=== PATIENT | female | born 1980 | race Caucasian/White ===

== ENCOUNTER 2018-03-15 20:33 | Emergency (ER) | payer BC ==
[2018-03-15 20:50] VITALS: RESP 20
[2018-03-15] MEDS ORDERED: SODIUM CHLORIDE 0.9% 1,000 ML IV STA (20:58)
--- NOTE | 2018-03-15 21:11 | ED ---
Abdominal Pain HPI - General Chief Complaint: Abdominal Pain Stated Complaint: abd pain Time Seen by Provider: 03/15/18 20:44 Source: patient, RN notes reviewed Mode of arrival: ambulatory Limitations: no limitations - History of Present Illness Initial Comments: 38-year-old female presented from chief complaint of abdominal pain. Patient states started over the last day or so, primarily right upper quadrant and right flank region. Patient states that she has no associated nausea vomiting diarrhea constipation. Denies any fevers or chills. She does state that sometimes eating food makes it worse. She did take Advil last night which minimally helped her pain. She has had prior sections no other surgeries. Denies any chest pain no shortness of breath. - Related Data Home Medications Medication Instructions Recorded Confirmed Multivitamin [Multivitamins Adult 1 tab PO DAILY 03/15/18 03/15/18 Gummies] Previous Rx's Medication Instructions Recorded Hydrocodone/Acetaminophen [[place] 1 tab PO Q6HR PRN #12 tab 03/15/18 5-325] Ondansetron Odt [Zofran Odt] 4 mg PO Q8HR PRN #10 tab 03/15/18 Allergies Allergy/AdvReac Type Severity Reaction Status Date / Time Penicillins Allergy Unknown Verified 03/15/18 20:43 Review of Systems ROS Statement: Those systems with pertinent positive or pertinent negative responses have been documented in the HPI. ROS Other: All systems not noted in ROS Statement are negative. Past Medical History Past Medical History: No Reported History History of Any Multi-Drug Resistant Organisms: None Reported Past Surgical History: Section Past Psychological History: No Psychological Hx Reported Smoking Status: Never smoker Past Alcohol Use History: None Reported Past Drug Use History: None Reported General Exam Limitations: no limitations General appearance: alert, in no apparent distress Head exam: Present: atraumatic, normocephalic, normal inspection Eye exam: Present: normal appearance, PERRL, EOMI. Absent: scleral icterus, conjunctival injection, periorbital swelling ENT exam: Present: normal exam, normal oropharynx, mucous membranes moist Neck exam: Present: normal inspection, full ROM. Absent: tenderness, meningismus, lymphadenopathy Respiratory exam: Present: normal lung sounds bilaterally. Absent: respiratory distress, wheezes, rales, rhonchi, stridor Cardiovascular Exam: Present: regular rate, normal rhythm, normal heart sounds. Absent: systolic murmur, diastolic murmur, rubs, gallop, clicks GI/Abdominal exam: Present: soft, tenderness ([id number] right upper quadrant tenderness), normal bowel sounds. Absent: distended, guarding, rebound , rigid Back exam: Present: CVA tenderness (R). Absent: CVA tenderness (L) Skin exam: Present: warm, dry, intact, normal color. Absent: rash Course Vital Signs 03/15/18 20:44 Temperature 98.6 F Pulse Rate 74 Respiratory 20 Rate Blood Pressure 140/69 O2 Sat by Pulse 100 Oximetry Medical Decision Making - Medical Decision Making 38-year-old female presented for right quadrant abdominal pain. Patient had normal lab work, urinalysis though on ultrasound she is found to have multiple gallstones no signs of cholecystitis. Patient will be discharged with follow- up with Dr. dumont on-call surgeon. - Lab Data Result diagrams: 03/15/18 21:05 03/15/18 21:05 Lab Results 03/15/18 03/15/18 03/15/18 Range/Units 21:05 21:05 21:05 WBC 6.7 (3.8-10.6) k/uL RBC 4.08 (3.80-5.40) m/uL Hgb 12.7 (11.4-16.0) gm/dL Hct 38.1 (34.0-46.0) % MCV 93.3 (80.0-100.0) fL MCH 31.1 (25.0-35.0) pg MCHC 33.3 (31.0-37.0) g/dL RDW 13.0 (11.5-15.5) % Plt Count 242 (150-450) k/uL Neutrophils % 42 % Lymphocytes % 45 % Monocytes % 8 % Eosinophils % 2 % Basophils % 0 % Neutrophils # 2.8 (1.3-7.7) k/uL Lymphocytes # 3.1 (1.0-4.8) k/uL Monocytes # 0.5 (0-1.0) k/uL Eosinophils # 0.1 (0-0.7) k/uL Basophils # 0.0 (0-0.2) k/uL Sodium 140 (137-145) mmol/L Potassium 4.0 (3.5-5.1) mmol/L Chloride 103 (98-107) mmol/L Carbon Dioxide 26 (22-30) mmol/L Anion Gap 11 mmol/L BUN 11 (7-17) mg/dL Creatinine 0.78 (0.52-1.04) mg/dL Est GFR (CKD-EPI)AfAm >90 (>60 ml/min/1.73 sqM) Est GFR (CKD-EPI)NonAf >90 (>60 ml/min/1.73 sqM) Glucose 93 (74-99) mg/dL Calcium 9.2 (8.4-10.2) mg/dL Total Bilirubin 0.4 (0.2-1.3) mg/dL AST 18 (14-36) U/L ALT 27 (9-52) U/L Alkaline Phosphatase 64 (38-126) U/L Total Protein 7.1 (6.3-8.2) g/dL Albumin 4.2 (3.5-5.0) g/dL Amylase 43 (30-110) U/L Lipase 94 (23-300) U/L Urine Color Yellow Urine Appearance Cloudy H (Clear) Urine pH 6.0 (5.0-8.0) Ur Specific [place] 1.013 (1.001-1.035) Urine Protein Negative (Negative) Urine Glucose (UA) Negative (Negative) Urine Ketones Negative (Negative) Urine Blood Negative (Negative) Urine Nitrite Negative (Negative) Urine Bilirubin Negative (Negative) Urine Urobilinogen <2.0 (<2.0) mg/dL Ur Leukocyte Esterase Trace H (Negative) Urine RBC 3 (0-5) /hpf Urine WBC 1 (0-5) /hpf Ur Squamous Epith Cells 6 H (0-4) /hpf Urine Bacteria Occasional H (None) /hpf Disposition Clinical Impression: Cholelithiasis, Abdominal pain Disposition: HOME SELF-CARE Condition: Stable Instructions: Gallstones (ED) Additional Instructions: Please return to the Emergency Department if symptoms worsen or any other concerns. Prescriptions: Hydrocodone/Acetaminophen [[place] 5-325] 1 tab PO Q6HR PRN #12 tab PRN Reason: Pain Ondansetron Odt [Zofran Odt] 4 mg PO Q8HR PRN #10 tab PRN Reason: Nausea Is patient prescribed a controlled substance at d/c from ED?: Yes When asked, does pt state using other controlled substances?: No If prescribed controlled substance>3 days was MAPS reviewed?: Prescribed <3 Days If opioid is for acute pain is fill amount 7 days or less?: Yes If Rx opioid, was Start Talking consent form obtained?: Yes Referrals: Armani Fowler MD [Primary Care Provider] - 1-2 days Will Dumont DO [Doctor of Osteopathic Medicine] - 1-2 days Time of Disposition: 22:59
[2018-03-15 21:13] LABS: Basophils % (A) 0 %; Eosinophils # (A) 0.1 k/uL (0-0.7); Eosinophils % (A) 2 %; HCT 38.1 % (34.0-46.0); HGB 12.7 gm/dL (11.4-16.0); Lymphocytes # (A) 3.1 k/uL (1.0-4.8); Lymphocytes % (A) 45 %; MCH 31.1 pg (25.0-35.0); MCHC 33.3 g/dL (31.0-37.0); MCV 93.3 fL (80.0-100.0); Mean Platelet Volume 6.9; Monocytes # (A) 0.5 k/uL (0-1.0); Monocytes % (A) 8 %; Neutrophils # (A) 2.8 k/uL (1.3-7.7); Neutrophils % (A) 42 %; Platelet Count 242 k/uL (150-450); RBC 4.08 m/uL (3.80-5.40); WBC 6.7 k/uL (3.8-10.6)
[2018-03-15 21:19] LABS: Appearance,Urine Cloudy (Clear); Bacteria,Urine Occasional /hpf; Bilirubin,Urine Negative (Negative); Blood,Urine Negative (Negative); Color,Urine Yellow; Glucose,Urine (UA) Negative (Negative); Ketones,Urine Negative (Negative); Leukocyte Esterase,Urine Trace (Negative); Nitrite,Urine Negative (Negative); Protein,Urine Negative (Negative); RBC,Urine 3 /hpf (0-5); Specific Gravity,Urine 1.013 (1.001-1.035); Squamous Epithelial Cell,Urine 6 /hpf (0-4); Urobilinogen,Urine <2.0 mg/dL (<2.0); WBC,Urine 1 /hpf (0-5)
[2018-03-15 21:26] LABS: ALT 27 U/L (9-52); AST 18 U/L (14-36); Albumin 4.2 g/dL (3.5-5.0); Alkaline Phosphatase 64 U/L (38-126); Amylase 43 U/L (30-110); Anion Gap 11 mmol/L; Blood Urea Nitrogen 11 mg/dL (7-17); Calcium 9.2 mg/dL (8.4-10.2); Carbon Dioxide 26 mmol/L (22-30); Chloride 103 mmol/L (98-107); Glucose 93 mg/dL (74-99); Lipase 94 U/L (23-300); Sodium 140 mmol/L (137-145); Total Bilirubin 0.4 mg/dL (0.2-1.3); Total Protein 7.1 g/dL (6.3-8.2)
[2018-03-15] MEDS ORDERED: KETOROLAC 30 MG/ML 1 ML VIAL IVP STA (21:34)
--- NOTE | 2018-03-15 22:52 | US ---
EXAMINATION TYPE: US gallbladder DATE OF EXAM: 03/15/2018 COMPARISON: NONE CLINICAL HISTORY: Pain. RUQ pain for 3 days. EXAM MEASUREMENTS: Liver Length: 18.6 cm Gallbladder Wall: 0.4 cm CBD: 0.6 cm Right Kidney: 10.5 x 4.5 x 5.6 cm Pancreas: Obscured by bowel gas Liver: enlarged Gallbladder: stones, GB wall upper limits of normal Evidence for sonographic Antunez's sign: yes CBD: limited evaluation Right Kidney: no evidence of hydonephrosis IMPRESSION: Multiple gallstones. No dilated ducts. No focal liver defect.
[2018-03-15 23:19] VITALS: BP 114/56; PULSE 66; TEMP 98.5
== END 2018-03-15 23:20 | disposition home or self-care (01) ==
LOC: EC 20:33
DX: K80.20 Calculus of gallbladder without cholecystitis without obstruction (principal); Z88.0 Allergy status to penicillin
CPT/HCPCS: 36415; 80053; 82150; 83690; 85025; 81001; 76705; 99284; 96374; 96361 ×2; J1885

== ENCOUNTER 2018-07-17 20:49 | Emergency (ER) | payer BC ==
[2018-07-17 20:54] VITALS: BP 143/85; PULSE 77; RESP 18; TEMP 98.7
[2018-07-17] MEDS ORDERED: CEFDINIR 300 MG CAP PO STA (21:47)
--- NOTE | 2018-07-17 21:52 | ED ---
ENT HPI - General Source: patient Mode of arrival: ambulatory Limitations: no limitations <Otilia Mendes - Last Filed: 07/17/18 22:10> <Effie Crum - Last Filed: 07/18/18 03:04> - General Chief complaint: ENT Stated complaint: ear pain Time Seen by Provider: 07/17/18 21:01 - History of Present Illness Initial comments: 38yo female no PMH presenting today for cc of right ear pain x1.5 week. Pt states she was seen for it last week and given a 5 day course of azithromycin. Pt states that the symptoms persisted. Pt denies fever, chillls, posterior ear pain, hearing loss, tinnitus, headache, rash or any other associates symptoms. Remainder of ROS (-) pt denies stating she has had a tubal ligation. Upon arrival pt VS stable. Pt appears well, pleasant. (Otilia Mendes) - Related Data Home Medications Medication Instructions Recorded Confirmed Multivitamin [Multivitamins Adult 1 tab PO DAILY 03/15/18 03/15/18 Gummies] Previous Rx's Medication Instructions Recorded Hydrocodone/Acetaminophen [[place] 1 tab PO Q6HR PRN #12 tab 03/15/18 5-325] Ondansetron Odt [Zofran Odt] 4 mg PO Q8HR PRN #10 tab 03/15/18 Cefdinir [Omnicef] 300 mg PO Q12HR 7 Days #14 capsule 07/17/18 Allergies Allergy/AdvReac Type Severity Reaction Status Date / Time Penicillins Allergy Rash/Hives Verified 07/17/18 20:54 Review of Systems ROS Other: All systems not noted in ROS Statement are negative. Constitutional: Denies: fever, chills, night sweats ENT: Reports: ear pain (right ear x1.5 week). Denies: throat pain, dental pain Respiratory: Denies: cough, dyspnea, wheezes, hemoptysis, stridor Cardiovascular: Denies: chest pain, palpitations, dyspnea on exertion Gastrointestinal: Denies: abdominal pain, nausea, vomiting, diarrhea, constipation Genitourinary: Denies: urgency, dysuria, frequency, hematuria Musculoskeletal: Denies: back pain Skin: Denies: rash, lesions <Otilia Mendes - Last Filed: 07/17/18 22:10> ROS Other: All systems not noted in ROS Statement are negative. <Effie Crum P - Last Filed: 07/18/18 03:04> ROS Statement: Those systems with pertinent positive or pertinent negative responses have been documented in the HPI. Past Medical History Past Medical History: No Reported History History of Any Multi-Drug Resistant Organisms: None Reported Past Surgical History: Section, Cholecystectomy Past Psychological History: No Psychological Hx Reported Smoking Status: Never smoker Past Alcohol Use History: Occasional Past Drug Use History: None Reported <Otilia Mendes - Last Filed: 07/17/18 22:10> General Exam Limitations: no limitations <Otilia Mendes - Last Filed: 07/17/18 22:10> <Effie Crum P - Last Filed: 07/18/18 03:04> - General Exam Comments Initial Comments: General: The patient is awake and alert, in no distress, and does not appear acutely ill. Eye: Pupils are equal, round and reactive to light, extra-ocular movements are intact. No nystagmus. There is normal conjunctiva bilaterally. No signs of icterus. Ears, nose, mouth and throat: There are moist mucous membranes and no oral lesions. Right tympanic membrane erythematous, no bulging or tympanic membranes perforation. Malleus present. No evidence of cholesteatoma. Examination of the left ear within normal limits. Oropharynx not erythematous no tonsillar exudates or lesions. No pain to palpation of the mastoids bilaterally. No posterior or preauricular lymphadenopathy. Neck: The neck is supple, there is no tenderness or JVD. Cardiovascular: There is a regular rate and rhythm. No murmur, rub or gallop is appreciated. Respiratory: Lungs are clear to auscultation, respirations are non-labored, breath sounds are equal. No wheezes, stridor, rales, or rhonchi. Musculoskeletal: Normal ROM, no tenderness. Strength 5/5. Sensation intact. Pulses equal bilaterally 2+. Neurological: A&O x 3. CN II-XII intact, There are no obvious motor or sensory deficits. Coordination appears grossly intact. Speech is normal. Skin: Skin is warm and dry and no rashes or lesions are noted. Psychiatric: Cooperative, appropriate mood & affect, normal judgment. (Otilia Mendes) Vital Signs 07/17/18 20:52 Temperature 98.7 F Pulse Rate 77 Respiratory 18 Rate Blood Pressure 143/85 O2 Sat by Pulse 100 Oximetry Medical Decision Making <Otilia Mendes - Last Filed: 07/17/18 22:10> <Effie Crum - Last Filed: 07/18/18 03:04> - Medical Decision Making 38yo female with cc right ear pain. PE revealed erythema of TM. No signs concerning for cholesteatoma or mastoiditis. Pt has PCN allergy, failed on azithromycin treatment. Given cefdinir PO, risks associated with cross reaction discussed with patient. Pt verbalized understanding. Pt will be given rx for cefdinir 300mg BID x7 days. Return parameters discussed. Patient verbalized understanding. Patient discharged in stable condition after discussing the case in detail with . (Otilia Mendes) I was available for consultation in the emergency department. The history and physical exam were done by the midlevel provider. I was consulted for this patient's care. I reviewed the case with the midlevel provider and based on their presentation of the patient, I agree with the assessment, medical decision making and plan of care as documented. (Effie Crum) Disposition Is patient prescribed a controlled substance at d/c from ED?: No Time of Disposition: 21:53 <Otilia Mendes - Last Filed: 07/17/18 22:10> <Effie Crum - Last Filed: 07/18/18 03:04> Clinical Impression: Otitis media of right ear Disposition: HOME SELF-CARE Condition: Good Instructions: Ear Infection (ED) Additional Instructions: Please use medication as discussed. Please follow-up with family doctor in the next 2 days. Please return to emergency room if the symptoms increase or worsen or for any other concerns. Prescriptions: Cefdinir [Omnicef] 300 mg PO Q12HR 7 Days #14 capsule Referrals: Armani Fowler MD [Primary Care Provider] - 1-2 days
== END 2018-07-17 22:21 | disposition home or self-care (01) ==
LOC: EC 20:49
DX: H66.91 Otitis media, unspecified, right ear (principal); Z88.0 Allergy status to penicillin
CPT/HCPCS: 99282

== ENCOUNTER 2023-01-13 00:20 | Emergency (ER) | payer BC ==
[2023-01-13 00:28] VITALS: TEMP 98.1
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
[2023-01-13] MEDS ORDERED: MORPHINE SULFATE 4 MG/ML SYRINGE IM STA (00:51)
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
[2023-01-13] MEDS ORDERED: ACET/COD 300 MG/30 MG STARTER PACK 6 TAB BTL PO STA (02:34)
[2023-01-13 02:44] VITALS: BP 108/68; PULSE 84; RESP 18
== END 2023-01-13 02:47 | disposition home or self-care (01) ==
LOC: EC 00:20
DX: S46.911A Strain of unspecified muscle, fascia and tendon at shoulder and upper arm level, right arm, initial encounter (principal); S09.90XA Unspecified injury of head, initial encounter; Z88.0 Allergy status to penicillin; V49.50XA Passenger injured in collision with unspecified motor vehicles in traffic accident, initial encounter
CPT/HCPCS: 73030; 73060; 73090; 72125; 70450; 99284; 96372; J2270